=== PATIENT | female | born 1945 | race Caucasian/White ===

== ENCOUNTER 2016-06-06 08:39 | Outpatient (CLI) | payer MEDICARE, BC | END 2016-06-06 08:40 | disposition home or self-care (01) | DX: Z85.850 Personal history of malignant neoplasm of thyroid (principal); R73.9 Hyperglycemia, unspecified; R25.1 Tremor, unspecified; R51 Headache ==

== ENCOUNTER 2016-08-25 16:15 | Outpatient (CLI) | payer BC, MEDICARE | END 2016-08-25 16:16 | disposition home or self-care (01) | DX: E55.9 Vitamin D deficiency, unspecified (principal); D64.9 Anemia, unspecified ==

== ENCOUNTER 2017-03-01 11:21 | Outpatient (CLI) | payer MEDICARE ==
--- NOTE | 2017-03-02 18:31 | Mammography Report ---
DIGITAL SCREENING MAMMOGRAM: 03/01/2017 CLINICAL INDICATION: A 71-year-old with family history of breast cancer, history of benign right js ast biopsy for screening. COMPARISON: 03/2015, 01/2013, 12/2011. TECHNIQUE: Routine CC and MLO projections were obtained of the breasts. The breasts again demonstrate scattered fibroglandular densities bilaterally. A few punctate, typica lly benign calcifications are present. Postoperative changes in the right breast are stable. No caroline picious masses, clustered microcalcifications, or regions of architectural distortion are identified. IMPRESSION: BENIGN FINDINGS. RECOMMENDATION: ROUTINE ANNUAL SCREENING UNLESS OTHERWISE CLINICALLY INDICATED. BIRADS CATEGORY: 2, BENIGN FINDINGS. STANDARD QUALIFYING STATEMENTS 1. This examination was reviewed with the aid of Computed-Aided Detection (CAD). 2. A negative or benign imaging report should not delay biopsy if clinically suspicious findings are present. Consider surgical consultation if warranted. More than 5% of cancers are not identified b y imaging. 3. Dense breasts may obscure an underlying neoplasm. JOB #: [id number] EXT JOB #:[id number]
== END 2017-03-01 11:22 | disposition home or self-care (01) ==
LOC: DI.S 11:21
PROVIDERS: ATTEND Physician Assistant
DX: Z12.31 Encounter for screening mammogram for malignant neoplasm of breast (principal); Z80.3 Family history of malignant neoplasm of breast
CPT/HCPCS: 77067

== ENCOUNTER 2018-10-30 16:24 | Outpatient (CLI) | payer MEDICARE, BC ==
--- NOTE | 2018-10-31 08:58 | Mammography Report ---
Reason: ENCOUNTER FOR SCREENING MAMMOGRAM FOR MALIGNANT NE Procedure Date: 10/30/2018 Accession Number: [id number] / [id number] Procedure: [facility] - Screening Mammo w/Juarez CPT Code: FULL RESULT: EXAM: Screening Mammo w/Juarez DATE: 10/30/2018 4:52 PM CLINICAL HISTORY: Screening encounter. Family history of breast cancer in the mother at the age of 75 and a maternal aunt at the age of 80. History of early menses. History of right breast core biopsy with benign pathology. TECHNIQUE: (B) - Bilateral CC and MLO views were obtained. COMPARISON: 03/01/2017 through 12/30/2011. PARENCHYMAL PATTERN: (A) - The breast(s) demonstrate(s) scattered fibroglandular densities. FINDINGS: There are no suspicious masses, calcifications, or areas of distortion. IMPRESSION: Negative examination. BI-RADS category 1. RECOMMENDATION: (ANNUAL) - Recommend routine annual screening mammography. BI-RADS CATEGORY: (1) - Negative. STANDARD QUALIFYING STATEMENTS: 1. This examination was not reviewed with the aid of Computer-Aided Detection (CAD). 2. A negative or benign imaging report should not preclude biopsy if clinically suspicious findings are present. 3. Dense breasts may obscure an underlying neoplasm. 4. This examination was reviewed with the aid of 3D breast imaging (tomosynthesis).
== END 2018-10-30 16:25 | disposition home or self-care (01) ==
LOC: DI 16:24
PROVIDERS: ATTEND Internal Medicine
DX: Z12.31 Encounter for screening mammogram for malignant neoplasm of breast (principal); Z80.3 Family history of malignant neoplasm of breast
CPT/HCPCS: 77063; 77067

== ENCOUNTER 2020-02-10 07:47 | Outpatient (CLI) | payer MEDICARE, BC ==
[2020-02-10 16:07] LABS: THYROID STIMULATING HORMONE 1.06 uIU/mL (0.34-5.60)
[2020-02-10 16:09] LABS: FREE T3 4.8 pg/mL (2.5-3.9); FREE T4 (FREE THYROXINE) 0.74 ng/dL (0.58-1.64)
== END 2020-02-10 07:48 | disposition home or self-care (01) ==
LOC: LAB.S 07:47
PROVIDERS: ATTEND Internal Medicine Endocrinology, Diabetes & Metabolism
DX: E03.9 Hypothyroidism, unspecified (principal); Z90.09 Acquired absence of other part of head and neck; M19.90 Unspecified osteoarthritis, unspecified site
CPT/HCPCS: 36415; 81599; 82607; 83520; 84439; 84443; 84481; 85651; 86140; 86430

== ENCOUNTER 2020-02-14 11:15 | Outpatient (CLI) | payer MEDICARE, BC | END 2020-02-14 11:16 | disposition home or self-care (01) | LOC: LAB.S 11:15 | PROVIDERS: ATTEND Internal Medicine Endocrinology, Diabetes & Metabolism | DX: E03.9 Hypothyroidism, unspecified (principal); Z90.09 Acquired absence of other part of head and neck; M19.90 Unspecified osteoarthritis, unspecified site | CPT/HCPCS: 36415; 85651 ==

== ENCOUNTER 2020-03-19 16:10 | Outpatient (CLI) | payer MEDICARE, BC ==
[2020-03-19 20:52] LABS: FREE T3 3.02 pg/mL (2.5-3.9); THYROID STIMULATING HORMONE 5.16 uIU/mL (0.34-5.60)
[2020-03-19 20:54] LABS: FREE T4 (FREE THYROXINE) 0.66 ng/dL (0.58-1.64)
== END 2020-03-19 16:11 | disposition home or self-care (01) ==
LOC: LAB.S 16:10
PROVIDERS: ATTEND Internal Medicine Endocrinology, Diabetes & Metabolism
DX: E03.9 Hypothyroidism, unspecified (principal)
CPT/HCPCS: 36415; 84439; 84443; 84481

== ENCOUNTER 2020-04-24 07:49 | Outpatient (CLI) | payer MEDICARE, BC ==
[2020-04-24 14:54] LABS: BASOPHILS % (AUTO) 0.5 %; EOSINOPHILS # (AUTO) 0.1 10^3/uL (0.0-0.7); EOSINOPHILS % (AUTO) 3.3 %; HGB - HEMOGLOBIN 13.8 g/dL (12.0-16.0); LYMPHOCYTES # (AUTO) 1.8 10^3/uL (1.5-3.5); MEAN CORPUSCULAR HEMOGLOBIN 28.9 pg (27.0-31.0); MEAN CORPUSCULAR HGB CONC 32.5 g/dL (32.0-36.0); MEAN CORPUSCULAR VOLUME 88.7 fL (81.0-99.0); MEAN PLATELET VOLUME 9.8 fL (7.9-10.8); MONOCYTES # (AUTO) 0.4 10^3/uL (0.0-1.0); MONOCYTES % (AUTO) 9.7 %; NEUTROPHILS # (AUTO) 1.6 10^3/uL (1.5-6.6); NEUTROPHILS % (AUTO) 41.2 %; PLT - PLATELET COUNT 237 10^3/uL (130-450); RED BLOOD COUNT 4.78 10^6/uL (4.20-5.40); RED CELL DISTRIBUTION WIDTH 12.8 % (12.0-15.0); WHITE BLOOD COUNT 3.9 x10^3/uL (4.8-10.8)
[2020-04-24 16:53] LABS: ALBUMIN 4.6 g/dL (3.2-5.5); ALBUMIN/GLOBULIN RATIO 2.3 (1.0-2.2); BILIRUBIN,TOTAL 2.1 mg/dL (0.2-1.0); CALCIUM 9.6 mg/dL (8.5-10.3); CREATININE 0.7 mg/dL (0.4-1.0); TOTAL PROTEIN 6.6 g/dL (6.7-8.2)
--- OUTSIDE RECORDS SUMMARY | 2020-04-29 01:27 | EXTERNAL MEDICAL SUMMARY RPT | Continuity of Care Document ---
:1945 Demographics Phone Unavailable Preferred Language Unknown Marital Status Unknown Spiritism Affiliation Unknown Race Unknown Ethnic Group Unknown Author Organization [place] Address [address] [phone] Phone Care Team Providers Name Role Phone RAMIREZ Unavailable Unavailable Problems date description facility 2020-02-10 07:47 HYPOTHYROIDISM, UNSPECIFIED [facility] 2020-02-10 07:47 UNSPECIFIED OSTEOARTHRITIS, [facility] UNSPECIFIED SITE 2020-02-10 07:47 ACQUIRED ABSENCE OF OTHER PART OF [facility] HEAD AND NECK 2020-02-14 11:15 HYPOTHYROIDISM, UNSPECIFIED [facility] 2020-02-14 11:15 UNSPECIFIED OSTEOARTHRITIS, [facility] UNSPECIFIED SITE 2020-02-14 11:15 ACQUIRED ABSENCE OF OTHER PART OF [facility] HEAD AND NECK 2020-03-19 16:10 HYPOTHYROIDISM, UNSPECIFIED [facility] 2020-04-24 07:49 VITAMIN D DEFICIENCY, UNSPECIFIED [facility] 2020-04-24 07:49 [facility] EXAM W/O ABNORMAL FINDINGS Results Social History date description facility [id number]
== END 2020-04-24 07:50 | disposition home or self-care (01) ==
LOC: LAB.S 07:49
PROVIDERS: ATTEND Internal Medicine
DX: Z00.00 Encounter for general adult medical examination without abnormal findings (principal); E55.9 Vitamin D deficiency, unspecified
CPT/HCPCS: 36415; 80053; 80061; 82306; 83036; 83721; 84443; 85025

== ENCOUNTER 2020-06-29 17:55 | Outpatient (CLI) | payer MEDICARE, BC ==
[2020-06-29 20:08] LABS: THYROID STIMULATING HORMONE 0.49 uIU/mL (0.34-5.60)
[2020-06-29 20:10] LABS: FREE T3 2.72 pg/mL (2.5-3.9)
== END 2020-06-29 17:56 | disposition home or self-care (01) ==
LOC: LAB.S 17:55
PROVIDERS: ATTEND Internal Medicine Endocrinology, Diabetes & Metabolism
DX: E03.9 Hypothyroidism, unspecified (principal)
CPT/HCPCS: 36415; 84439; 84443; 84481

== ENCOUNTER 2020-09-02 06:54 | Day surgery (SDC) | payer MEDICARE, OTHER ==
[2020-09-02] MEDS ORDERED: LACTATED RINGERS 1,000 ML IV ONE (07:03)
[2020-09-02] MEDS ORDERED: fentaNYL 250 MCG/5 ML VIAL ONE (08:08)
[2020-09-02] MEDS ORDERED: MIDAZOLAM 2 MG/2 ML VIAL ONE ×2 (08:08→08:31)
[2020-09-02] MEDS ORDERED: LACTATED RINGERS 800 ML IV ONE (08:40)
[2020-09-02] MEDS ORDERED: ONDANSETRON ODT 4 MG TABLET ONE (09:43)
[2020-09-02 09:48] VITALS: BP 108/62
== END 2020-09-02 06:55 | disposition home or self-care (01) ==
LOC: SDS 06:54
PROVIDERS: ATTEND Surgery
DX: R19.5 Other fecal abnormalities (principal); K64.8 Other hemorrhoids; Z80.0 Family history of malignant neoplasm of digestive organs; E89.0 Postprocedural hypothyroidism; Z87.891 Personal history of nicotine dependence; Z79.899 Other long term (current) drug therapy
CPT/HCPCS: 45378; J3010; J7120; Q0162

== ENCOUNTER 2021-11-15 14:55 | Outpatient (CLI) | payer MEDICARE, OTHER ==
--- NOTE | 2021-11-17 09:51 | Mammography Report ---
BILATERAL DIGITAL SCREENING MAMMOGRAM 3D/2D: 11/15/2021 CLINICAL: Routine screening. Family history of breast cancer. No prior exams were available for comparison. There are scattered fibroglandular elements in both br easts. No significant masses, calcifications, or other findings are seen in either breast. IMPRESSION: NEGATIVE There is no mammographic evidence of malignancy. A 1 year screening mammogram is recommended. Based on the Tyrer Cuzick model (a risk assessment model) the patients lifetime risk is 6.2% and her 10 year risk is 0.0%. According to the ACR, ACS, and NCCN guidelines, an annual breast MRI exam samantha g with mammogram is recommended if the patients lifetime risk is 20% or greater. This exam was interpreted at Station ID: [id number]. NOTE: For mammograms, a report in lay terms will be sent to the patient. Approximately 15% of breast malignancies will not be visualized mammographically. In the management of a palpable breast mass, a negative mammogram must not discourage biopsy of a clinically suspicious lesion. Electronically Signed By: Katerine anguiano/chary:11/16/2021 10:01:25 ACR BI-RADS Category 1: Negative 3341F PARENCHYMAL PATTERN: (A) - The breast(s) demonstrate(s) scattered fibroglandular densities. BI-RADS CATEGORY: (1) - 1 RECOMMENDATION: (ANNUAL) - Recommend routine annual screening mammography. [id number] 1 year screening LATERALITY: (B)
== END 2021-11-15 14:56 | disposition home or self-care (01) ==
LOC: DI.S 14:55
DX: Z12.31 Encounter for screening mammogram for malignant neoplasm of breast (principal); Z80.3 Family history of malignant neoplasm of breast

== ENCOUNTER 2023-02-22 08:36 | Outpatient (CLI) | payer MEDICARE, OTHER ==
--- NOTE | 2023-02-22 12:04 | Mammography Report ---
BILATERAL DIGITAL SCREENING MAMMOGRAM 3D/2D: 02/22/2023 CLINICAL: Routine screening. Family history of breast cancer. Comparison is made to exams dated: 11/15/2021 mammogram and 10/30/2018 mammogram - [facility]. There are scattered areas of fibroglandular density in both breasts (category b / 25%-50% glandular t issue). No significant masses, calcifications, or other findings are seen in either breast. There has been no significant interval change. IMPRESSION: NEGATIVE There is no mammographic evidence of malignancy. A 1 year screening mammogram is recommended. Based on the Tyrer Cuzick model (a risk assessment model) the patients lifetime risk is 5.7% and her 10 year risk is 0.0%. According to the ACR, ACS, and NCCN guidelines, an annual breast MRI exam samantha g with mammogram is recommended if the patients lifetime risk is 20% or greater. This exam was interpreted at Station ID: [id number]. NOTE: For mammograms, a report in lay terms will be sent to the patient. Approximately 15% of breast malignancies will not be visualized mammographically. In the management of a palpable breast mass, a negative mammogram must not discourage biopsy of a clinically suspicious lesion. Electronically Signed By: Gurdeep solis/chary:02/22/2023 10:20:59 letter sent: No_Letter ACR BI-RADS Category 1: Negative 3341F PARENCHYMAL PATTERN: (A) - The breast(s) demonstrate(s) scattered fibroglandular densities. BI-RADS CATEGORY: (1) - 1 Mammogram [id number] 1 year screening LATERALITY: (B)
== END 2023-02-22 08:37 | disposition home or self-care (01) ==
LOC: DI.S 08:36
DX: Z12.31 Encounter for screening mammogram for malignant neoplasm of breast (principal); Z80.3 Family history of malignant neoplasm of breast; R92.323 Mammographic fibroglandular density, bilateral breasts

== ENCOUNTER 2023-06-06 07:03 | Outpatient (CLI) | payer MEDICARE, OTHER ==
[2023-06-06 14:35] LABS: BASOPHILS % (AUTO) 0.7 %; EOSINOPHILS # (AUTO) 0.1 10^3/uL (0.0-0.7); EOSINOPHILS % (AUTO) 3.1 %; HCT - HEMATOCRIT 42.6 % (37.0-47.0); HGB - HEMOGLOBIN 13.9 g/dL (12.0-16.0); LYMPHOCYTES % (AUTO) 44.8 %; MEAN CORPUSCULAR HEMOGLOBIN 29.5 pg (27.0-31.0); MEAN CORPUSCULAR HGB CONC 32.6 g/dL (32.0-36.0); MEAN CORPUSCULAR VOLUME 90.4 fL (81.0-99.0); MEAN PLATELET VOLUME 9.8 fL (7.9-10.8); MONOCYTES # (AUTO) 0.4 10^3/uL (0.0-1.0); NEUTROPHILS # (AUTO) 1.9 10^3/uL (1.5-6.6); NEUTROPHILS % (AUTO) 42.4 %; PLT - PLATELET COUNT 244 10^3/uL (130-450); RED BLOOD COUNT 4.71 10^6/uL (4.20-5.40); RED CELL DISTRIBUTION WIDTH 13.1 % (12.0-15.0); WHITE BLOOD COUNT 4.5 x10^3/uL (4.8-10.8)
[2023-06-06 14:59] LABS: THYROID STIMULATING HORMONE 1.56 uIU/mL (0.34-5.60)
[2023-06-06 15:04] LABS: ALBUMIN 4.3 g/dL (3.2-5.5); ALKALINE PHOSPHATASE 55 IU/L (42-121); ALT ALANINE AMINOTRANSFERASE 12 IU/L (10-60); AST ASPARTATE AMINOTRANSFERASE 13 IU/L (10-42); BILIRUBIN,TOTAL 1.4 mg/dL (0.2-1.0); BUN - BLOOD UREA NITROGEN 20 mg/dL (6-20); CALCIUM 9.5 mg/dL (8.5-10.3); CARBON DIOXIDE - CO2 30 mmol/L (21-32); CHLORIDE 106 mmol/L (101-111); CHOLESTEROL 250 mg/dL; CREATININE 0.7 mg/dL (0.6-1.3); GFR - MDRD 81 (>89); GLUCOSE 104 mg/dL (74-104); HDL CHOLESTEROL 63 mg/dL; LDL CHOLESTEROL,CALCULATED 156 mg/dL; LDL/HDL RATIO 2.5 (<4.4); POTASSIUM 4.1 mmol/L (3.5-4.5); SODIUM 139 mmol/L (135-145); TOTAL PROTEIN 6.4 g/dL (6.4-8.9); TRIGLYCERIDES 153 mg/dL (48-352); VLDL CHOLESTEROL 31 mg/dL
[2023-06-06 21:11] LABS: ESTIMATED AVERAGE GLUCOSE 117 mg/dL (70-100); HEMOGLOBIN A1c% 5.7 % (4.27-6.07)
== END 2023-06-06 07:04 | disposition home or self-care (01) ==
LOC: LAB.S 07:03
PROVIDERS: ATTEND Internal Medicine
DX: E03.9 Hypothyroidism, unspecified (principal); R00.2 Palpitations; Z13.220 Encounter for screening for lipoid disorders; E55.9 Vitamin D deficiency, unspecified; Z13.228 Encounter for screening for other metabolic disorders
CPT/HCPCS: 36415; 80053; 80061; 82306; 83036; 83721; 84439; 84443; 84481; 85025

== ENCOUNTER 2023-10-11 08:00 | Outpatient (CLI) | payer MEDICARE, OTHER | END 2023-10-11 23:59 | disposition home or self-care (01) | LOC: LAB.S 08:00 | PROVIDERS: ATTEND Registered Nurse | DX: R09.89 Other specified symptoms and signs involving the circulatory and respiratory systems (principal) ==